=== PATIENT | male | born 1995 | race Caucasian/White ===

== ENCOUNTER 2017-06-13 18:49 | Emergency (ER) | payer MEDICAID, OTHER ==
[2017-06-13 19:26] VITALS: RESP 18; TEMP 98.6
--- NOTE | 2017-06-13 19:47 | EDPHY ---
H & P Time Seen by Provider: 06/13/17 19:27 HPI/ROS: CHIEF COMPLAINT: Left hand laceration HISTORY OF PRESENT ILLNESS: 21-year-old male presents emergency department with laceration to his left hand. Patient was at work cleaning a glass which broke and then cut his palm of his left hand. He is right-hand dominant. Incident happened just prior to arrival. Denies any other trauma or injury. He is right-hand dominant. He believes his tetanus shot is current. ROS: Denies numbness or tingling in his fingers, retained foreign body, injury to his fingers. Past Medical/Surgical History: Negative Social History: Single and works at the [employer] Smoking Status: Former smoker Physical Exam: On examination the patient has a 3 cm laceration to the base of the palm of the left hand overlying thenar eminence. No active bleeding noted. No evidence of retained foreign body. Normal sensation to light touch with normal 2 point discrimination. No palpable bony tenderness. Full range of motion of all of his fingers. Constitutional: Initial Vital Signs Heart Rate 66 06/13/17 18:53 Respiratory Rate 17 06/13/17 18:53 Blood Pressure 123/64 H 06/13/17 18:53 O2 Sat (%) 94 06/13/17 18:53 O2 Delivery Mode Room Air Allergies/Adverse Reactions: Penicillins Allergy (Unknown, Verified 09/04/15 18:50) Home Medications: Medication Instructions Recorded Adderall 10 MG (*) 06/13/17 Lexapro 06/13/17 MDM/Departure - MDM Procedures: Laceration repair. Verbal consent was obtained from the patient. The 3 cm laceration on the left palm was anesthetized using 1% lidocaine without epinephrine. The wound was irrigated with saline, draped and explored to its base with a gloved finger. There were no deep structures involved. No tendon injury was identified. The wound was repaired with 4 0 Ethilon, 6 sutures. The wound repair was simple. The procedure was performed by myself. ED Course/Re-evaluation: 21-year-old male presents emergency department with left hand injury. The wound was repaired. Patient was given wound care precautions. - Depart Disposition: Home, Routine, Self-Care Clinical Impression: Laceration of left hand Qualifiers: Encounter type: initial encounter Foreign body presence: without foreign body Qualified Code(s): S69.412A - Laceration without foreign body of left hand, initial encounter Condition: Good Instructions: Care For Your Stitches (ED), Laceration (ED), Acute Wounds (ED) Additional Instructions: Wound Care Follow-Up: Removal of sutures in 10 days. Suture removal is complimentary in uncomplicated cases. Infection or abnormal findings would require reevaluation by the MD. In that case, you may be billed. Return to the emergency department if you notice any signs or symptoms of infection such as redness, swelling, increased pain, fever, purulent drainage. Keep wound dry, clean and protected. Referrals: Jamie Saucedo MD [Primary Care Provider] - As per Instructions
[2017-06-13 20:27] VITALS: BP 123/55; PULSE 77; O2SAT 96
== END 2017-06-13 20:25 | disposition home or self-care (01) ==
PROC: 0HQGXZZ Repair Left Hand Skin, External Approach (ICD-10-PCS; principal; 2017-06-13)
DX: S61.412A Laceration without foreign body of left hand, initial encounter (principal); Z87.891 Personal history of nicotine dependence; W25.XXXA Contact with sharp glass, initial encounter; Y99.0 Civilian activity done for income or pay; Y93.89 Activity, other specified

== ENCOUNTER 2018-07-17 19:07 | Emergency (ER) | payer SELFPAY ==
[2018-07-17] MEDS ORDERED: NS 1,000 ML IV ONE (19:22)
[2018-07-17] MEDS ORDERED: ONDANSETRON 4 MG/2 ML VIAL IVP ONE (19:22)
--- NOTE | 2018-07-17 19:30 | EDPHY ---
H & P Stated Complaint: N/V/D, fever-like, fatigue, JARA, abdominal cramping (improved) Time Seen by Provider: 07/17/18 19:16 HPI/ROS: CHIEF COMPLAINT: Nausea, diarrhea HISTORY OF PRESENT ILLNESS: 22-year-old male presents with nausea and diarrhea. Onset of diarrhea 3 days ago. Multiple episodes of diarrhea daily, no blood. Associated with nausea, mild intermittent abdominal cramping and subjective fever. Feels dehydrated. Works in a restaurant. No known ill contacts. REVIEW OF SYSTEMS: complete 10 point ROS reviewed and is negative except for the noted elements in the HPI Source: Patient - Personal History Current Tetanus/Diphtheria Vaccine: Yes Current Tetanus Diphtheria and Acellular Pertussis (TDAP): Yes - Medical/Surgical History Hx Asthma: No Hx Chronic Respiratory Disease: No Hx Diabetes: No Hx Cardiac Disease: No Hx Renal Disease: No Hx Cirrhosis: No Hx Alcoholism: No Hx HIV/AIDS: No Hx Splenectomy or Spleen Trauma: No Other PMH: tonsilectomy - Social History Smoking Status: Former smoker Alcohol Use: Sober - Physical Exam Exam: General Appearance: Alert, pleasant, nontoxic-appearing Eyes: Pupils equal and round, no conjunctival pallor ENT, Mouth: Mucous membranes moist Neck: Normal inspection Respiratory: Lungs are clear to auscultation Cardiovascular: Regular rate and rhythm Gastrointestinal: Abdomen is soft and nontender Neurological: A&O, nonfocal, normal gait Skin: Warm and dry Extremities: Normal inspection Psychiatric: Mood and affect normal Constitutional: Initial Vital Signs Temperature (C) 37.2 C 07/17/18 19:18 Heart Rate 80 07/17/18 19:18 Respiratory Rate 18 07/17/18 19:18 Blood Pressure 118/68 07/17/18 19:18 O2 Sat (%) 98 07/17/18 19:18 O2 Delivery Mode Room Air Allergies/Adverse Reactions: Penicillins Allergy (Unknown, Verified 07/17/18 19:16) Home Medications: Medication Instructions Recorded Adderall 10 MG (*) 06/13/17 Lexapro 06/13/17 Medical Decision Making ED Course/Re-evaluation: IV normal saline 1 L and Zofran 4 mg IV given. Tolerated oral fluids well. Abdominal exam remains benign. Patient was able to provide a stool sample and requests a GI pathogen study. He will call back tomorrow morning for the results. Warning signs discussed. Differential Diagnosis: Differential diagnosis includes though it is not limited to appendicitis, cholecystitis, diverticulitis, pyelonephritis, bowel perforation, small bowel obstruction. - Data Points Medications Given: Discontinued Medications Sodium Chloride (Ns) 1,000 mls @ 0 mls/hr IV EDNOW ONE; Wide Open PRN Reason: Protocol Stop: 07/17/18 19:23 Last Admin: 07/17/18 19:30 Dose: 1,000 mls Ondansetron HCl (Zofran) 4 mg IVP EDNOW ONE Stop: 07/17/18 19:23 Last Admin: 07/17/18 19:32 Dose: 4 mg Departure - Departure Disposition: Home, Routine, Self-Care Clinical Impression: Acute gastroenteritis Condition: Good Instructions: Ondansetron (By mouth), Gastroenteritis (ED) Additional Instructions: 1. Clear liquids for 24 hours. 2. Advance diet as tolerated. I suggest the BRAT diet to start: bananas, rice, applesauce and toast. 3. Return for worsening symptoms, persistent vomiting, abdominal pain, any concerns. 4. Imodium as needed for diarrhea. 5. Zofran 1 tablet under the tongue every 6 hr as needed for nausea. Referrals: Jamie Saucedo MD [Primary Care Provider] - 2-3 days, if not improved
[2018-07-17 20:09] VITALS: BP 130/69
[2018-07-17] MEDS ORDERED: ONDANSETRON 4MG PREPACK#2 BTL TAKEHOME ONE (20:33)
== END 2018-07-17 20:41 | disposition home or self-care (01) ==
DX: K52.9 Noninfective gastroenteritis and colitis, unspecified (principal); E86.9 Volume depletion, unspecified
CPT/HCPCS: 96374; J2405